=== PATIENT | male | born 1965 | race Caucasian/White ===

== ENCOUNTER 2019-11-15 09:23 | Outpatient (CLI) | payer BC, SELFPAY ==
--- NOTE | 2019-11-15 13:00 | DI.RAD_ITS ---
EXAM: XR LUMBAR SPINE COMPLETE CLINICAL HISTORY: Worsening pain, with numbness @ RT LE, DORSALGIA, M54.9, M79.604. TECHNIQUE: 2D digital imaging was performed. COMPARISON: No exams were available for comparison FINDINGS: BONES: No fracture or destructive lesion. Vertebral bodies are unremarkable. Mild hypertrophy identif ied at L 5 S1. No spondylolysis, spondylolisthesis or scoliosis is seen. DISKS: There is mild narrowing of the L1-2 disc space and small endplate osteophytes. The remaining intervertebral disc spaces are maintained. There are small endplate osteophytes at L3-4 and L4-5. ALIGNMENT: Lumbar spinal alignment is within normal limits. SOFT TISSUE: A large quantity of stool is seen throughout the colon. There is no gastric or small ami wel distention.. IMPRESSION: Mild degenerative changes, greatest at L1-2. Large quantity of stool. DATA REPOSITORY: RADIATION DOSE DELIVERED:
== END 2019-11-15 09:43 ==
PROVIDERS: PCP Student in an Organized Health Care Education/Training Program; Visit Provider Student in an Organized Health Care Education/Training Program
DX: M54.5 Low back pain (principal); M79.604 Pain in right leg; M51.37 Other intervertebral disc degeneration, lumbosacral region; K59.00 Constipation, unspecified
CPT/HCPCS: 72110

== ENCOUNTER 2020-02-18 02:17 | Outpatient (CLI) | payer BC, SELFPAY ==
[2020-02-18 11:54] LABS: ALT 46 U/L (16-63); AST 27 U/L (15-37); Albumin 4.5 g/dL (3.4-5.0); Alkaline Phosphatase 68 U/L (46-116); Anion Gap 7.4 mmol/L (3-11); BUN 15 mg/dL (7-18); Bilirubin, Total 0.8 mg/dL (0.2-1.0); CO2 29.6 mmol/L (21.0-32.0); CREATININE 0.94 mg/dL (0.70-1.30); Calcium 9.6 mg/dL (8.5-10.1); Calculated LDL 130 mg/dL (<100); Chloride 102 mmol/L (98-107); Cholesterol 206 mg/dL (<200); Glucose 93 mg/dL (74-106); HDL Cholesterol 67 mg/dL (40-60); Potassium 4.4 mmol/L (3.5-5.1); Sodium 139 mmol/L (136-145); Total Protein 6.8 g/dL (6.4-8.2); Triglyceride 46 mg/dL (<150)
== END 2020-02-18 02:37 ==
PROVIDERS: PCP Student in an Organized Health Care Education/Training Program; Visit Provider Student in an Organized Health Care Education/Training Program
DX: I10 Essential (primary) hypertension (principal); Z13.220 Encounter for screening for lipoid disorders
CPT/HCPCS: 36415; 80053; 80061

== ENCOUNTER 2022-02-28 01:53 | Outpatient (CLI) | payer BC, SELFPAY ==
[2022-02-28 08:32] LABS: ALT 22 U/L (16-63); AST 19 U/L (15-37); Albumin 3.9 g/dL (3.4-5.0); Alkaline Phosphatase 79 U/L (46-116); BUN 12 mg/dL (7-18); Bilirubin, Total 0.8 mg/dL (0.2-1.0); Calcium 8.8 mg/dL (8.5-10.1); Calculated LDL 87 mg/dL (<100); Chloride 103 mmol/L (98-107); Cholesterol 168 mg/dL (<200); Glucose 97 mg/dL (74-106); HDL Cholesterol 71 mg/dL (40-60); Potassium 4.2 mmol/L (3.5-5.1); Sodium 139 mmol/L (136-145); Total Protein 6.9 g/dL (6.4-8.2); Triglyceride 52 mg/dL (<150)
[2022-03-04 13:18] LABS: Testosterone, Total 456 ng/dL (240-950)
== END 2022-02-28 01:54 | disposition home or self-care (01) ==
PROVIDERS: PCP Student in an Organized Health Care Education/Training Program; Referring Provider Student in an Organized Health Care Education/Training Program; Visit Provider Student in an Organized Health Care Education/Training Program
DX: I10 Essential (primary) hypertension (principal); R53.83 Other fatigue; R68.82 Decreased libido; Z13.220 Encounter for screening for lipoid disorders; Z13.1 Encounter for screening for diabetes mellitus
CPT/HCPCS: 36415; 80053; 80061; 84403

== ENCOUNTER 2022-08-19 02:54 | Outpatient (CLI) | payer BC, SELFPAY ==
[2022-08-23 14:56] LABS: Testosterone, Total 478 ng/dL (240-950)
== END 2022-08-19 02:55 | disposition home or self-care (01) ==
LOC: LBO 02:54
PROVIDERS: PCP Student in an Organized Health Care Education/Training Program; Visit Provider Student in an Organized Health Care Education/Training Program
DX: R53.81 Other malaise (principal); R53.83 Other fatigue; I10 Essential (primary) hypertension; F32.89 Other specified depressive episodes
CPT/HCPCS: 36415; 84403

== ENCOUNTER 2022-09-01 03:54 | Outpatient (CLI) | payer BC, SELFPAY ==
[2022-09-06 08:14] LABS: Testosterone, Total 596 ng/dL (240-950)
== END 2022-09-01 03:55 | disposition home or self-care (01) ==
LOC: LBO 03:54
PROVIDERS: PCP Student in an Organized Health Care Education/Training Program; Visit Provider Student in an Organized Health Care Education/Training Program
DX: R53.83 Other fatigue (principal); R68.82 Decreased libido
CPT/HCPCS: 36415; 84403

== ENCOUNTER 2022-09-23 01:42 | Outpatient (CLI) | payer BC, SELFPAY ==
[2022-09-28 09:37] LABS: Testosterone, Total 659 ng/dL (240-950)
== END 2022-09-23 01:43 | disposition home or self-care (01) ==
LOC: LBO 01:42
PROVIDERS: PCP Student in an Organized Health Care Education/Training Program; Visit Provider Student in an Organized Health Care Education/Training Program
DX: R53.83 Other fatigue (principal); R68.82 Decreased libido
CPT/HCPCS: 36415; 84403

== ENCOUNTER 2023-02-03 02:56 | Outpatient (CLI) | payer BC, SELFPAY ==
[2023-02-03 10:59] LABS: Anion Gap 8.2 mmol/L (3-11); BUN 12 mg/dL (7-18); CO2 29.8 mmol/L (21.0-32.0); CREATININE 0.9 mg/dL (0.70-1.30); Calcium 9.2 mg/dL (8.5-10.1); Chloride 102 mmol/L (98-107); Cholesterol 189 mg/dL (<200); Glucose 97 mg/dL (74-106); HDL Cholesterol 74 mg/dL (40-60); Magnesium 2.1 mg/dL (1.8-2.4); Potassium 3.9 mmol/L (3.5-5.1); Sodium 140 mmol/L (136-145); TSH (W/Ref FT4) 1.94 uIU/mL (0.36-3.74)
[2023-02-03 11:00] LABS: Triglyceride <25 mg/dL (<150)
[2023-02-03 11:15] LABS: LDL CHOLESTEROL 99 mg/dL (<100)
[2023-02-03 20:25] LABS: PSA, Screening 0.4 ng/mL (<=3.5)
== END 2023-02-03 02:57 | disposition home or self-care (01) ==
PROVIDERS: PCP Student in an Organized Health Care Education/Training Program; Visit Provider Student in an Organized Health Care Education/Training Program
DX: Z00.00 Encounter for general adult medical examination without abnormal findings; Z91.89 Other specified personal risk factors, not elsewhere classified; Z12.5 Encounter for screening for malignant neoplasm of prostate; R53.83 Other fatigue
CPT/HCPCS: 36415; 80048; 80061; 83721; 84153; 83735; 84443

== ENCOUNTER 2024-09-26 03:09 | Outpatient (CLI) | payer BC, SELFPAY ==
[2024-09-26 08:07] LABS: ALT 23 U/L (16-63); AST 22 U/L (15-37); Albumin 3.9 g/dL (3.4-5.0); Alkaline Phosphatase 110 U/L (46-116); Anion Gap 4.5 mmol/L (3-11); BUN 10 mg/dL (7-18); Bilirubin, Total 0.54 mg/dL (0.2-1.0); CO2 32.5 mmol/L (21.0-32.0); CREATININE 1.1 mg/dL (0.70-1.30); Calcium 9.4 mg/dL (8.5-10.1); Calculated LDL 135 mg/dL (<100); Chloride 103 mmol/L (98-107); Cholesterol 215 mg/dL (<200); Estimated GFR 76.85 (mL/min/1.73m2); Glucose 98 mg/dL (74-106); HDL Cholesterol 75 mg/dL (40-60); Potassium 3.9 mmol/L (3.5-5.1); Sodium 140 mmol/L (136-145); Total Protein 7.3 g/dL (6.4-8.2); Triglyceride 27 mg/dL (<150); Vitamin B12 790 pg/mL (193-986); Vitamin D 25 Total 49.4 ng/mL (30-100)
[2024-09-26 22:02] LABS: PSA, Screening 0.5 ng/mL (<=4.5)
[2024-09-26 22:22] LABS: HIV-1/2 Ag & Ab Screen Negative (Negative)
[2024-09-26 22:41] LABS: Hepatitis C Ab w Rflx HCV PCR Negative (Negative)
== END 2024-09-26 03:10 | disposition home or self-care (01) ==
LOC: LBO 03:09
PROVIDERS: PCP Nurse Practitioner; Referring Provider Nurse Practitioner; Visit Provider Nurse Practitioner
DX: I10 Essential (primary) hypertension (principal); Z12.5 Encounter for screening for malignant neoplasm of prostate; R53.83 Other fatigue; Z11.59 Encounter for screening for other viral diseases; E55.9 Vitamin D deficiency, unspecified
CPT/HCPCS: 36415; 80053; 80061; 82306; 84153; 86803; 87389; 82607

== ENCOUNTER 2024-10-16 16:09 | Outpatient (CLI) | payer BC, SELFPAY ==
--- NOTE | 2024-10-16 16:00 | RT.EKG_ITS ---
APPROVED REPORT Exam: Resting ECG Reason for Exam: screen Patient Location: O HR:46 bpm ECG Measurements Heart Rate 46 AXIS WY 144 P 36 QRSd 100 QRS 55 QT 485 T 47 QTc 425 Conclusion Sinus bradycardia...rate< 50 Normal Electrocardiogram
== END 2024-10-16 16:10 | disposition home or self-care (01) ==
LOC: DI.KIM 16:09
PROVIDERS: PCP Nurse Practitioner; Visit Provider Nurse Practitioner
DX: E78.5 Hyperlipidemia, unspecified (principal); Z82.49 Family history of ischemic heart disease and other diseases of the circulatory system
CPT/HCPCS: 93010

== ENCOUNTER 2025-02-11 04:17 | Outpatient (CLI) | payer BC, SELFPAY ==
[2025-02-11 08:35] LABS: Calculated LDL 58 mg/dL (<100); Cholesterol 135 mg/dL (<200); HDL Cholesterol 70 mg/dL (>or=40); Triglyceride 39 mg/dL (<150)
== END 2025-02-11 04:18 | disposition home or self-care (01) ==
PROVIDERS: PCP Nurse Practitioner; Visit Provider Nurse Practitioner
DX: E78.5 Hyperlipidemia, unspecified (principal)
CPT/HCPCS: 36415; 80061